=== PATIENT | female | born 1940 | race Caucasian/White ===

== ENCOUNTER 2019-11-20 04:00 | Outpatient (RCR) | payer MEDICARE, OTHER, SELFPAY | END 2019-11-27 00:01 | LOC: LAB 04:00 | PROVIDERS: Visit Provider Nurse Practitioner Family | DX: G30.9 Alzheimer's disease, unspecified (principal); I10 Essential (primary) hypertension | CPT/HCPCS: 36415; 80048; 85025 ==

== ENCOUNTER 2021-05-28 12:26 | Inpatient (IN) | payer MEDICARE, OTHER, SELFPAY ==
[2021-05-28] VITALS (10 sets, daily range): BP systolic 109–155; BP diastolic 63–90; PULSE 67–80; RESP 15–19; TEMP 36.8–37.6; O2SAT 90–94; BMI 29.5
--- NOTE | 2021-05-28 12:51 | XR_ITS ---
WS: [id number] Portable AP upright chest, 05/28/2021 Clinical Data: reduced breaths sounds Comparison: Portable chest, 11/15/2013. Findings: There is a patchy opacity in the lateral aspect of the right midlung and right lower lung w hich could represent atelectasis and/or minimal pneumonia. The patient has a poor inspiratory effort. No nodules, masses or effusions are seen. The heart is normal. The aortic arch and descending aorta show tortuosity. The pulmonary vascularity is not increased. No pneumothorax is seen. 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 XR/XR chest 1V portable [id number] Impression: 1. Patchy opacity in right midlung and right lower lobe which could represent a telectasis and/or pneumonia. 2. Atherosclerosis.
--- NOTE | 2021-05-28 12:54 | ECG_ITS ---
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 Measurements Intervals [place] Rate: 82 P: 60 VA: 202 QRS: 12 QRSD: 90 T: 29 QT: 385 QTc: 452 Interpretive Statements SINUS RHYTHM WITH OCCASIONAL SUPRAVENTRICULAR PREMATURE COMPLEXES No previous ECG available for comparison Electronically Signed On 05-28-2021 20:29:31 CDT by Elliot Yip M.D. [id number]
[2021-05-28] MEDS: sodium chloride 0.9% 1,000 ML 999 ML IV (13:13)
[2021-05-28 13:20] LABS: Basophils # 0.1 10^3/uL (0.0-0.1); Basophils % 0.4 %; Eosinophils % 0.3 %; Hematocrit 36.3 % (37.0-47.0); Hemoglobin 11.4 g/dL (11.5-15.3); Lymphocytes # 0.9 10^3/uL (0.8-4.8); Lymphocytes % 6.2 %; Mean Corpuscular HGB Conc 31.4 g/dL (30.0-36.0); Mean Corpuscular Hemoglobin 29.8 pg (28.0-34.0); Mean Platelet Volume 9.9 fL (7.4-10.4); Monocytes # 1.8 10^3/uL (0.2-0.9); Monocytes % 12.7 %; Neutrophils # 10.63 10^3/uL (1.8-7.7); Neutrophils % 76.2 %; Nucleated Red Blood Cells % 0 %; Platelet Count 335 10^3/cmm (130-400); Red Blood Count 3.82 10^6/uL (4.1-5.3); Red Cell Distribution Width 12.8 % (12.1-15.1); White Blood Count 13.9 10^3/uL (4.0-10.0)
[2021-05-28 13:27] LABS: Add Urine Microscopic? YES; Bilirubin Urine Neg (Negative); Blood Urine Neg (Negative); Glucose Urine UA Norm (Normal); Ketones Urine Negative (Negative); Leukocyte Esterase Urine Negative (Negative); Nitrate Urine Positive (Negative); Protein Urine Neg (Negative); Urine Appearance Clear (CLEAR); Urine Color Yellow (Yellow); Urobilinogen Urine Norm (Negative); pH Urine 5 (5-7)
[2021-05-28 13:28] LABS: Bacteria Urine 2+ /hpf; Squamous Epithelial Cell Urine 0-4 /hpf (0-5)
[2021-05-28 13:38] LABS: ABG PCO2 34.3 mmHg (35-45); ABG PH Result 7.43 (7.35-7.45); Arterial Blood Gas Hematocrit 35.8 % (37-47); Base Excess ABG -0.9 mmol/L (-2.0-2.0); Blood Gas Operator Identificat AMH; Blood Gas Sample Site Brachial, right; Blood Gas Sample Type Arterial; HCO3 ABG 22.9 mmol/L (22-26); HGB O2 Sat 90.5 % (95-100); Methemoglobin 0.9 % (0.4-1.5); Oxygen Device ROOM AIR; PO2 ABG 59.1 mmHg (80.0-100.0); Total Hemoglobin 11.7 g/dL (12-16)
[2021-05-28 13:38] LABS: Lactate (Lactic Acid level) 0.8 mmol/L (0.5-2.2); Troponin(5th) Baseline 28 ng/L (0-10)
[2021-05-28 13:42] LABS: Albumin Level 3.1 g/dL (3.5-5.2); Alkaline Phosphatase 141 IU/L (35-105); Anion Gap 14.9 (5-19); Calcium 8.2 mg/dL (8.5-10.5); Chloride 101 mmol/L (98-107); Globulin 3.2 g/dL (1.3-4.6); Osmolality Calculated 280 mOsm/kg (285-295); Potassium 3.9 mmol/L (3.5-5.1); Sodium 134 mmol/L (136-145); Total Protein 6.3 g/dL (6.6-8.7)
[2021-05-28 13:45] LABS: Alanine Aminotransferase 9 U/L (0-33); Aspartate Amino Transferase 12 U/L (0-32); Blood Urea Nitrogen 17 mg/dL (8-23); Carbon Dioxide 22 mmol/L (22-29); Glucose 106 mg/dL (65-115); Lipase 29 U/L (13-60); Total Bilirubin 0.5 mg/dL (0.15-1.2)
[2021-05-28 13:55] LABS: Add Urine Culture? Yes
--- NOTE | 2021-05-28 14:03 | CT_ITS ---
WS: [id number] CT ABDOMEN PELVIS TECHNIQUE: Contrast-enhanced CT of the abdomen and pelvis with coronal and sagittal reformatted image s. CLINICAL INFORMATION: llq abd tenderness COMPARISON: None. DLP: 1612.[address] scans at [facility] use at least one of these dose optimization techniques: automat ed exposure control; mA and/or kV adjustment per patient size (includes targeted exams where dose is matched to clinical indication); or iterative reconstruction. FINDINGS: Diffuse fatty infiltration of the liver. Normal portal vein and splenic vein. Small cyst in left hepa tic lobe measuring 11 mm. Gallbladder appears normal. Normal spleen. Moderate esophageal hiatal herni a. Small right pleural effusion with compressive atelectasis right lower lobe. Patchy infiltrates par tially visualized in the lingula right middle lobe and right lower lobe. Trace left pleural fluid. Adrenal glands are normal. Bilateral renal cortical atrophy. Normal renal p arenchymal enhancement. A few tiny renal cysts. Fatty atrophy of the pancreas. No hydronephrosis in e ither kidney. Normal caliber abdominal aorta. Aortic calcification. Rectal constipation with prominent rectal distention. Sigmoid diverticulosis. No evidence of acute di verticulitis. Sigmoid colon is decompressed. Moderate distention of the right and left colon and roque sverse colon with fecal retention and air-fluid levels. No free fluid in the pelvis. Small bowel is decompressed. Tiny fat-containing umbilical hernia. Vivien l caliber abdominal aorta. No abdominal or pelvic lymphadenopathy. Grade 1 anterolisthesis L4 on L5. Disc space narrowing worse at L1-L2, L2-3, L4 L5 and L5-S1. CT/CT abdomen pelvis w con* [id number] IMPRESSION: 1. Pancolonic constipation with air-fluid levels in the transverse colon. Mode rate colonic distention. 2. Rectal constipation with prominent rectal distention. 3. Sigmoid diverticulosis. No evidence of acute diverticulitis. 4. Small right pleural effusion with patchy infiltrates in the right middle lo be and right lower lobe. Trace infiltrates in the lingula. Recommend correlatio n for pneumonia. 5. No hydronephrosis in either kidney. 6. Normal caliber abdominal aorta. 7. Small esophageal hiatal hernia.
[2021-05-28] MEDS: cefTRIAXone 1,000 MG in sodium chloride 0.9% (plus) 50 ML 100 MG IV (14:29)
[2021-05-28] MEDS: iohexol 300 mg/mL 100 mL Btl IV (14:52)
--- NOTE | 2021-05-28 14:54 | ECG_ITS ---
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 Measurements Intervals [place] Rate: 77 P: 64 AK: 204 QRS: 9 QRSD: 85 T: 1 QT: 386 QTc: 438 Interpretive Statements SINUS RHYTHM Compared to ECG 05/28/2021 13:17:04 No significant changes Electronically Signed On 05-28-2021 20:37:44 CDT by Elliot Yip M.D. [id number]
[2021-05-28] MEDS: azithromycin 500 MG in sodium chloride 0.9% 250 ML 250 MG IV (14:57)
[2021-05-28 16:44] LABS: Troponin 5 2HR 24.29 ng/L (0-10)
[2021-05-28 16:45] LABS: Troponin 5 2HR Delta -3.71 ABS# (0-10)
--- NOTE | 2021-05-28 17:02 | ED_ITS ---
HPI - Abdominal Pain General: Chief Complaint: Abdominal Pain Stated Complaint: abd pain Time Seen by Provider: 05/28/21 12:36 History of Present Illness: HPI narrative: The patient is a 80-year-old female with past medical history dementia who lives at shelter comes to the ER complaining of lower abdominal pain. When asked she says yes she has abdominal pain then forgets about it. Then her belly cramps and she collapsed grabs her left lower quadrant. She is not a reliable historian at all. She knows her name but nothing else. Of note she is satting in the mid to upper 80s on room air and when asked to take deep breaths she goes to the low 90s. Placed on 2 L oxygen satting in the 90s MD elicited complaint: abdominal pain Pain Consistency: intermittent Location: LLQ Severity: moderate Quality: sharp Migration to: RLQ Exacerbating factors: other (palpation) Relieving factors: nothing Associated Symptoms: Reports no associated symptoms; Denies GI cramping and diarrhea Review of Systems General: Reports: 10 or more systems reviewed and unremarkable except in HPI and below Const: Denies: fatigue Eyes: Denies: change in vision, blurry vision or eye redness ENMT: Denies: throat pain, swelling of lips/tongue, ear or mastoid pain or nasal congestion Card: Denies: chest pain, palpitations, irregular heart rhythm, edema, dyspnea on exertion or orthopnea Resp: Denies: dyspnea, productive cough or non-productive cough GI: Reports: abdominal pain; Denies: diarrhea or GI cramping : Denies: flank pain, difficulty voiding, urinary frequency or urinary urgency Musc: Denies: neck pain, back pain, extremity pain, joint pain, joint redness, limited range of motion or muscle weakness Skin/Breast: Denies: rash, pruritus, erythema, skin pain or skin tenderness Neuro: Denies: headache(s), numbness in extremities, weakness in extremities, sensory changes, difficulty walking, dizziness, confusion or Slurred speech present Psych: Denies: anxiety or depression Endo: Denies: polyuria All/Imm: Denies: urticaria, throat swelling or tongue swelling PFSH ED PFSH: Medical History (Updated 05/29/21 @ 00:39 by Darrel Siddiqui MD) Alzheimer disease Physical Exam Const: COMMON NORMALS: no acute distress, average body habitus, patient oriented x3, no limitations, healthy appearing, alert and well nourished GENERAL APPEARANCE: cooperative, comfortable, well kempt and well developed ORIENTATION/CONSCIOUSNESS: Yes awake, Yes oriented to person, Yes oriented to place and Yes oriented to time HENMT: COMMON NORMALS: normocephalic, external ears normal and Normal external nose present HEAD & SCALP: normal to inspection and normocephalic NOSE: Normal external nose present EXTERNAL EAR: Yes external ears normal MOUTH: Normal oral and palatal mucosa present THROAT: posterior oropharynx normal Eye: COMMON NORMALS: Equal, round and reactive pupils present and EOMs intact bilaterally GENERAL EYE: appearance normal, both eyes and all related structures PUPIL: Yes Equal, round and reactive pupils present Neck/C-Spine: COMMON NORMALS: full ROM, no lymphadenopathy, no meningeal signs and no JVD GENERAL: Yes normal visual inspection Lymph: LYMPHATIC: no lymphadenopathy noted Chest: COMMONS NORMALS: normal inspection of the chest and normal palpation of entire chest wall Resp: COMMON NORMALS: normal respiratory effort, No retractions, No use of accessory muscles, clear to auscultation bilaterally and percussion normal EFFORT & INSPECTION: Yes able to speak in complete sentences AUSCULTATION: clear to auscultation bilaterally PERCUSSION: percussion normal Cardio: COMMON NORMALS: no JVD, regular rate, regular rhythm, S1 normal heart sound present, S2 normal heart sound present and Peripheral pulses 2+ throughout RATE: regular rate RHYTHM: regular rhythm HEART SOUNDS: S1 normal heart sound present and S2 normal heart sound present PERIPHERAL PULSES: Peripheral pulses 2+ throughout GI: COMMON NORMALS: Normal to inspection, nondistended, normoactive bowel sounds present, Soft to palpation and no masses INSPECTION: Yes normal to inspection PALPATION: Yes Soft to palpation and Yes Tenderness to palpation present (GI) Details: LLQ : COMMON NORMALS: Yes no CVA tenderness BLADDER/KIDNEY EXAM: Yes no CVA tenderness Back/Pelvis: COMMON NORMALS: no CVA tenderness, thoracic and lumbar spine normal to inspection, no thoracic nor lumbar tenderness and thoraco-lumbar ROM normal Extremity: COMMON NORMALS: normal to inspection, full ROM, capillary refill normal, no joint enlargement and no pedal edema GENERAL: Yes normal exam except as noted Neuro: COMMON NORMALS: patient oriented x3, CN's II-XII intact bilaterally, moves all extremities, no focal motor deficits, no sensory deficits noted and gait normal SENSORIUM/ORIENTATION: Yes alert, Yes oriented to person, Yes oriented to place and Yes oriented to time MENINGEAL SIGNS: Yes no meningeal signs Psych: COMMON NORMALS: mental status grossly normal, Normal thought process present, cooperative, normal affect and speech normal APPEARANCE: Yes well kempt ATTITUDE: Yes calm SPEECH: Yes normal speech THOUGHT PROCESS: Normal thought process present Skin: COMMON NORMALS: no rashes or lesions noted GENERAL SKIN EXAM: no rashes or lesions noted Course Vital Signs: Vital signs: Vital Signs Temperature 98.6 F 05/29/21 00:29 Pulse Rate 77 05/28/21 23:55 Respiratory Rate 17 05/28/21 23:55 Blood Pressure 153/86 05/28/21 23:55 Pulse Oximetry 94 05/28/21 23:55 MDM - Abdominal Pain MDM Narrative: Medical decision making narrative: The patient came to the ER complaining of lower abdominal pain and oxygen sat was in the mid 80s when she arrived as well. Placed on oxygen with good improvement of her oxygenation. Chest x-ray shows right middle and lower lobe pneumonia as well as white count 13.9. She was started on IV fluids, ceftriaxone, and azithromycin as well as given a breathing treatment. Her abdominal pain was evaluated with CT abdomen pelvis which was unremarkable other than showing constipation. She is chronically as well suffering from dementia severely and is an unreliable historian. Discussed with Dr. Olmstead who accepts for admission. Lab Data: Labs: Lab Results 05/28/21 05/28/21 05/28/21 Range/Units 13:00 13:09 13:09 WBC 13.9 H (4.0-10.0) 10^3/ uL RBC 3.82 L (4.1-5.3) 10^6/u L Hgb 11.4 L (11.5-15.3) g/dL Hct 36.3 L (37.0-47.0) % MCV 95.0 (81-99) fL MCH 29.8 (28.0-34.0) pg MCHC 31.4 (30.0-36.0) g/dL RDW 12.8 (12.1-15.1) % Plt Count 335 (130-400) 10^3/c mm MPV 9.9 (7.4-10.4) fL Neut % (Auto) 76.2 % Lymph % (Auto) 6.2 % Bledsoe % (Auto) 12.7 % Eos % (Auto) 0.3 % Baso % (Auto) 0.4 % Neut # (Auto) 10.63 H (1.8-7.7) 10^3/u L Lymph # (Auto) 0.9 (0.8-4.8) 10^3/u L Bledsoe # (Auto) 1.8 H (0.2-0.9) 10^3/u L Eos # (Auto) 0.0 (0.0-0.8) 10^3/u L Baso # (Auto) 0.1 (0.0-0.1) 10^3/u L Nucleated RBC % (a uto) 0 % Nucleated RBCs # 0.0 /100WBC Specimen Type Sample Site ABG pH (7.35-7.45) ABG pCO2 (35-45) mmHg ABG pO2 (80.0-100.0) mmH g ABG HCO3 (22-26) mmol/L ABG Base Excess (-2.0-2.0) mmol/ L Alex Test Hematocrit (37-47) % Hgb O2 Saturation (95-100) % Carboxyhemoglobin (0.4-20.1) %THgb Methemoglobin (0.4-1.5) % Total Hemoglobin (12-16) g/dL O2 Delivery Device FiO2 % [employer] Operator ID Sodium 134 L (136-145) mmol/L Potassium 3.9 (3.5-5.1) mmol/L Chloride 101 (98-107) mmol/L Carbon Dioxide 22 (22-29) mmol/L Anion Gap 14.9 (5-19) BUN 17 (8-23) mg/dL Creatinine 0.9 (0.5-0.9) mg/dL GFR Calculation Not Reportable Glucose 106 (65-115) mg/dL Calculated Osmolal ity 280 L (285-295) mOsm/k g Lactate (0.5-2.2) mmol/L Calcium 8.2 L (8.5-10.5) mg/dL Total Bilirubin 0.5 (0.15-1.2) mg/dL AST 12 (0-32) U/L ALT 9 (0-33) U/L Alkaline Phosphata se 141 H (35-105) IU/L Troponin T Baselin e (0-10) ng/L Troponin T 120 [place] (0-10) ng/L Delta Troponin T (0-10) ABS# Total Protein 6.3 L (6.6-8.7) g/dL Albumin 3.1 L (3.5-5.2) g/dL Globulin 3.2 (1.3-4.6) g/dL Lipase 29 (13-60) U/L Urine Color Yellow (Yellow) Urine Appearance Clear (CLEAR) Urine pH 5 (5-7) Ur Specific Gravit y 1.020 (1.005-1.030) Urine Protein Neg (Negative) Urine Glucose (UA) Norm (Normal) Urine Ketones Negative (Negative) Urine Blood Neg (Negative) Urine Nitrate Positive H (Negative) Urine Bilirubin Neg (Negative) Urine Urobilinogen Norm (Negative) mg/dL Ur Leukocyte Staci ase Negative (Negative) Urine RBC None (0-2) /hpf Urine WBC None (0-5) /hpf Ur Squamous Epith Cells 0-4 H (0-5) /hpf Amorphous Sediment Not Reportable Urine Bacteria 2+ H (NONE) /hpf 05/28/21 05/28/21 05/28/21 Range/Units 13:09 13:09 13:27 WBC (4.0-10.0) 10^3/ uL RBC (4.1-5.3) 10^6/u L Hgb (11.5-15.3) g/dL Hct (37.0-47.0) % MCV (81-99) fL MCH (28.0-34.0) pg MCHC (30.0-36.0) g/dL RDW (12.1-15.1) % Plt Count (130-400) 10^3/c mm MPV (7.4-10.4) fL Neut % (Auto) % Lymph % (Auto) % Bledsoe % (Auto) % Eos % (Auto) % Baso % (Auto) % Neut # (Auto) (1.8-7.7) 10^3/u L Lymph # (Auto) (0.8-4.8) 10^3/u L Bledsoe # (Auto) (0.2-0.9) 10^3/u L Eos # (Auto) (0.0-0.8) 10^3/u L Baso # (Auto) (0.0-0.1) 10^3/u L Nucleated RBC % (a uto) % Nucleated RBCs # /100WBC Specimen Type Arterial Sample Site Brachial, right ABG pH 7.43 (7.35-7.45) ABG pCO2 34.3 L (35-45) mmHg ABG pO2 59.1 L (80.0-100.0) mmH g ABG HCO3 22.9 (22-26) mmol/L ABG Base Excess -0.9 (-2.0-2.0) mmol/ L Alex Test N/a Hematocrit 35.8 L (37-47) % Hgb O2 Saturation 90.5 L (95-100) % Carboxyhemoglobin 1.0 (0.4-20.1) %THgb Methemoglobin 0.9 (0.4-1.5) % Total Hemoglobin 11.7 L (12-16) g/dL O2 Delivery Device Room air FiO2 21.0 % [employer] Operator ID Amh Sodium (136-145) mmol/L Potassium (3.5-5.1) mmol/L Chloride (98-107) mmol/L Carbon Dioxide (22-29) mmol/L Anion Gap (5-19) BUN (8-23) mg/dL Creatinine (0.5-0.9) mg/dL GFR Calculation Glucose (65-115) mg/dL Calculated Osmolal ity (285-295) mOsm/k g Lactate 0.8 (0.5-2.2) mmol/L Calcium (8.5-10.5) mg/dL Total Bilirubin (0.15-1.2) mg/dL AST (0-32) U/L ALT (0-33) U/L Alkaline Phosphata se (35-105) IU/L Troponin T Baselin e 28 H (0-10) ng/L Troponin T 120 [place] (0-10) ng/L Delta Troponin T (0-10) ABS# Total Protein (6.6-8.7) g/dL Albumin (3.5-5.2) g/dL Globulin (1.3-4.6) g/dL Lipase (13-60) U/L Urine Color (Yellow) Urine Appearance (CLEAR) Urine pH (5-7) Ur Specific Gravit y (1.005-1.030) Urine Protein (Negative) Urine Glucose (UA) (Normal) Urine Ketones (Negative) Urine Blood (Negative) Urine Nitrate (Negative) Urine Bilirubin (Negative) Urine Urobilinogen (Negative) mg/dL Ur Leukocyte Staci ase (Negative) Urine RBC (0-2) /hpf Urine WBC (0-5) /hpf Ur Squamous Epith Cells (0-5) /hpf Amorphous Sediment Urine Bacteria (NONE) /hpf 05/28/21 Range/Units 15:30 WBC (4.0-10.0) 10^3/ uL RBC (4.1-5.3) 10^6/u L Hgb (11.5-15.3) g/dL Hct (37.0-47.0) % MCV (81-99) fL MCH (28.0-34.0) pg MCHC (30.0-36.0) g/dL RDW (12.1-15.1) % Plt Count (130-400) 10^3/c mm MPV (7.4-10.4) fL Neut % (Auto) % Lymph % (Auto) % Bledso[place] % (Auto) % Eos % (Auto) % Baso % (Auto) % Neut # (Auto) (1.8-7.7) 10^3/u L Lymph # (Auto) (0.8-4.8) 10^3/u L [place]led[place] # (Auto) (0.2-0.9) 10^3/u L Eos # (Auto) (0.0-0.8) 10^3/u L Baso # (Auto) (0.0-0.1) 10^3/u L Nucleated RBC % (a uto) % Nucleated RBCs # /100WBC Specimen Type Sample Site ABG pH (7.35-7.45) ABG pCO2 (35-45) mmHg ABG pO2 (80.0-100.0) mmH g ABG HCO3 (22-26) mmol/L ABG Base Excess (-2.0-2.0) mmol/ L Alex Test Hematocrit (37-47) % Hgb O2 Saturation (95-100) % Carboxyhemoglobin (0.4-20.1) %THgb Methemoglobin (0.4-1.5) % Total Hemoglobin (12-16) g/dL O2 Delivery Device FiO2 % [employer] Operator ID Sodium (136-145) mmol/L Potassium (3.5-5.1) mmol/L Chloride (98-107) mmol/L Carbon Dioxide (22-29) mmol/L Anion Gap (5-19) BUN (8-23) mg/dL Creatinine (0.5-0.9) mg/dL GFR Calculation Glucose (65-115) mg/dL Calculated Osmolal ity (285-295) mOsm/k g Lactate (0.5-2.2) mmol/L Calcium (8.5-10.5) mg/dL Total Bilirubin (0.15-1.2) mg/dL AST (0-32) U/L ALT (0-33) U/L Alkaline Phosphata se (35-105) IU/L Troponin T Baselin e (0-10) ng/L Troponin T 120 [place] 24.29 H (0-10) ng/L Delta Troponin T -3.71 L (0-10) ABS# Total Protein (6.6-8.7) g/dL Albumin (3.5-5.2) g/dL Globulin (1.3-4.6) g/dL Lipase (13-60) U/L Urine Color (Yellow) Urine Appearance (CLEAR) Urine pH (5-7) Ur Specific Gravit y (1.005-1.030) Urine Protein (Negative) Urine Glucose (UA) (Normal) Urine Ketones (Negative) Urine Blood (Negative) Urine Nitrate (Negative) Urine Bilirubin (Negative) Urine Urobilinogen (Negative) mg/dL Ur Leukocyte Staci ase (Negative) Urine RBC (0-2) /hpf Urine WBC (0-5) /hpf Ur Squamous Epith Cells (0-5) /hpf Amorphous Sediment Urine Bacteria (NONE) /hpf Discharge Plan Discharge Patient Disposition: Admitted As Inpatient Admit Provider: Kait Olmstead Clinical Impression: Community acquired pneumonia, Constipation, UTI (urinary tract infection), Alzheimer disease Condition: Stable Coding Level of Care Code ED Academic Services Coordinator for Chg Fwd Exam Comprehensive
--- NOTE | 2021-05-28 20:08 | P.HP_ITS ---
Providers/Chief Complaint Admitting Physician: Kait Olmstead MD Chief Complaint: abdominal pain/ confusion History of Present Illness Ignacia Couch is a 80 year old female with Alzheimer's dementia, long-term senior living resident, referred to the ER after she was noted to have lower abdominal pain oxygen saturation down in the 80s. She was tested for Covid PCR, and was negative on May 25, 2021. Patient noted to have increased confusion over baseline. She is unable to give me any history due to profound dementia. History is obtained by ER chart review. Diagnostics notable for positive UA, leukocytosis with WBC up to 13, hypoxia on ABG, pancolonic constipation on CT abdomen with moderate colonic distension, no diverticulitis, small right pleural effusion with patchy infiltrates in RML and RLL. CXR with Patchy opacity in right midlung and right lower lobe which could represent atelectasis and/or pneumonia. Review of Systems General: Reports: ROS unobtainable due to medical condition Medications/Allergies Home Medications Medication Instructions Recorded Confirmed Last Taken Type acetaminophen [Mapap Arthritis 650 mg PO Q6H PRN 05/28/21 05/28/21 Unknown History Pain] albuterol sulfate 2.5 mg INHALATION Q4H PRN 05/28/21 05/28/21 05/27/21 History bisacodyl 5 mg PO DAILY PRN MDD 2 TIMES 05/28/21 05/28/21 05/27/21 History dextran 70-hypromellose (PF) 1 drp OPHTHALMIC (EYE) PRN 05/28/21 05/28/21 Unknown History [Natural Tears (PF)] donepezil 10 mg PO DAILY@199905/28/21 05/28/21 05/27/21 History food supplemt, lactose-reduced 1 ea PO BID@0800,199905/28/21 05/28/21 05/28/21 History [TwoCal HN] lisinopril 20 mg PO DAILY@0800 05/28/21 05/28/21 05/28/21 History loratadine 10 mg PO DAILY@0800 05/28/21 05/28/21 05/28/21 History memantine 10 mg PO BID@0800,199905/28/21 05/28/21 05/28/21 History simvastatin 10 mg PO DAILY@1700 07/12/1805/28/21 05/27/21 History tramadol 50 mg PO Q8H PRN 05/28/21 05/28/21 Unknown History tramadol 50 mg PO TID@08,14,20 05/28/21 05/28/21 05/28/21 History Allergies Allergy/AdvReac Type Severity Reaction Status Date / Time Barbiturates Allergy Unknown Verified 05/28/21 13:47 PFSH Acute PFSH: Medical History (Updated 05/28/21 @ 20:12 by Kait Olmstead MD) Alzheimer disease Vitals/I&O/Wt Last Vital Signs Temp 98.6 F 05/28/21 19:59 Pulse 67 05/28/21 19:59 Resp 18 05/28/21 19:59 BP 150/90 05/28/21 19:59 Pulse Ox 90 05/28/21 19:59 05/28/21 05/28/21 05/28/21 06:59 14:59 22:59 Intake Total 1300 / 1300 Balance 1300 / 1300 Weight last 48 hrs Weight 83.007 kg Physical Exam Narrative: EXAM NARRATIVE: General: No acute distress, AO x1 HEENT: PERRLA, pupils bilaterally equal and reactive, pallors not present Chest: Normal vesicular breath sounds, no added sounds, equal good air entry bilaterally CVS: S1-S2 regular, no murmurs, no tachycardia, no gallops, no rubs Abdomen: Soft, nontender, no organomegaly, bowel sounds present Neuro: No focal deficits, no facial deformity, AO x3, power 5/5 in all limbs Extremities: no cyanosis, clubbing or edema Data : 05/28/21 13:09 05/28/21 13:09 A&P Assessment and plan (1) Community acquired pneumonia: start Ceftriaxone 1g iv q24h + azithromycin 500mg supplemental 02 to keep sat >92% albuterol inhalation prn COVID PCR negative at facility from 05/25 Status: Acute (2) UTI (urinary tract infection): +UA, urine cx pending CTX empirically as above cr normal no obstruction Status: Acute (3) Constipation: with colonic distension Dulcolax suppository now, start lactulose , MOM prn Status: Acute (4) Alzheimer disease: worsened mentation than at baseline per daughter, patient usually alert , awake, converses appropriately but with poor short term memory, forgetful. recently advanced from assisted living to closed dementia unit likely worsening related to metabolic encephalopathy fro UTI, pneumonia Status: Acute Attestations Medical Necessity Statement*: >2midnight anticipated, need for iv abx for pneumonia, UTI, metabolic encephalopathy Coding Level of Care Code Acute Transaction Advisory Services Manager for [facility] Fwd Diagnoses Community acquired pneumonia J18.9 UTI (urinary tract infection) N39.0 Constipation K59.00 Alzheimer disease G30.9; F02.80
[2021-05-28] MEDS: lactulose oral liq 20 gm/30 mL UDC 10 GM PO (22:04)
[2021-05-28] MEDS: bisacodyl 10 mg Supp PR (22:05)
[2021-05-28] MEDS: enoxaparin 40 mg/0.4 mL Syringe SUBCUT (22:06)
[2021-05-28] MEDS: sodium chloride 0.9% 1,000 ML 50 ML IV (22:06)
[2021-05-29] VITALS (8 sets, daily range): BP systolic 135–163; BP diastolic 54–88; PULSE 62–94; RESP 16–18; TEMP 36.9–38.1; O2SAT 90–98
[2021-05-29 04:53] LABS: Basophils # 0.1 10^3/uL (0.0-0.1); Basophils % 0.6 %; Eosinophils # 0.2 10^3/uL (0.0-0.8); Eosinophils % 1.2 %; Hematocrit 37.7 % (37.0-47.0); Hemoglobin 11.8 g/dL (11.5-15.3); Lymphocytes # 1.4 10^3/uL (0.8-4.8); Lymphocytes % 10.9 %; Mean Corpuscular HGB Conc 31.3 g/dL (30.0-36.0); Mean Corpuscular Hemoglobin 29.4 pg (28.0-34.0); Mean Platelet Volume 9.9 fL (7.4-10.4); Monocytes # 1.8 10^3/uL (0.2-0.9); Monocytes % 13.9 %; Neutrophils # 8.68 10^3/uL (1.8-7.7); Neutrophils % 68.4 %; Nucleated Red Blood Cells % 0 %; Platelet Count 340 10^3/cmm (130-400); Red Blood Count 4.01 10^6/uL (4.1-5.3); Red Cell Distribution Width 12.4 % (12.1-15.1); White Blood Count 12.7 10^3/uL (4.0-10.0)
[2021-05-29 05:15] LABS: Aspartate Amino Transferase 13 U/L (0-32); Total Bilirubin 0.4 mg/dL (0.15-1.2)
[2021-05-29 05:42] LABS: Albumin Level 2.9 g/dL (3.5-5.2); Alkaline Phosphatase 125 IU/L (35-105); Blood Urea Nitrogen 12 mg/dL (8-23); Calcium 8.1 mg/dL (8.5-10.5); Osmolality Calculated 284 mOsm/kg (285-295)
[2021-05-29 05:43] LABS: Alanine Aminotransferase 8 U/L (0-33); Anion Gap 16.9 (5-19); Carbon Dioxide 21 mmol/L (22-29); Chloride 104 mmol/L (98-107); Globulin 3.1 g/dL (1.3-4.6); Glucose 75 mg/dL (65-115); Potassium 3.9 mmol/L (3.5-5.1); Sodium 138 mmol/L (136-145)
--- NOTE | 2021-05-29 05:45 | PC.NURSE ---
SHIFT NOTE PATIENT RESTED IN BED THIS SHIFT, EASILY AWAKEN, SMALL FORMED STOOL AFTER LAX WAS GIVEN, HAD LOOSE SHARMILA STOOL AROUND 0400, INCONTINENT OF B&B, REMAINED CONFUSED THROUGHOUT THE NIGHT, COOPERATIVE AND ABLE TO FOLLOW SIMPLE INSTRUCTIONS, PATIENTS BEGINS COUGHING WITH MOVEMENT AND DEEP BREATHS, COUGH REMAINED DRY.
[2021-05-29] MEDS: lisinopril 20 mg Tablet PO (09:19)
[2021-05-29] MEDS: memantine 5 mg tablet 10 MG PO ×2 (09:19→20:30)
[2021-05-29] MEDS: lactulose oral liq 20 gm/30 mL UDC 10 GM PO ×2 (09:19→20:31)
[2021-05-29] MEDS: TRAMadol 50 mg Tablet PO ×2 (09:20→20:30)
--- NOTE | 2021-05-29 11:05 | PC.NURSE ---
per Dr. morton pt had a negative COVID PCR on 05/25 at [facility], verbal order to discontinue isolation.
[2021-05-29 15:20] LABS: Coronavirus Test Green County Not Detected
--- NOTE | 2021-05-29 18:04 | PM.PN ---
Subjective Subjective: Interval history: mental status significantly better today, alert awake and oriented though lapses iwth short term memeory evident, reports 1BM yesterday Vitals/I&O/Wt Last Vital Signs Temp 98.8 F 05/29/21 11:33 Pulse 67 05/29/21 11:33 Resp 16 05/29/21 11:33 BP 135/78 05/29/21 11:33 Pulse Ox 90 05/29/21 11:33 Weight last 48 hrs Weight 83.007 kg Physical Exam Narrative: EXAM NARRATIVE: GEN: Awake, alert and oriented, no acute distress CVS: S1S2 N RS: CTA B/L Abd: Soft, nt/nd , bs+ PHARMACIST IN CHARGE: no focal neuro deficits Data : 05/29/21 04:37 05/29/21 04:37 Micro: Microbiology 05/28/21 13:00 Sputum Culture - Preliminary Sputum - Expectorated Sputum 05/28/21 13:00 Urine Culture - Preliminary Urine,Clean Catch Gram Negative Rods A&P Assessment and plan (1) Community acquired pneumonia: continue Ceftriaxone 1g iv q24h + azithromycin 500mg supplemental 02 to keep sat >92% albuterol inhalation prn COVID PCR negative at facility from 05/25 Status: Acute (2) UTI (urinary tract infection): +UA, urine cx prelim GNR CTX empirically as above cr normal no obstruction Status: Acute (3) Constipation: with colonic distension Dulcolax suppository now, start lactulose , MOM prn Status: Acute (4) Alzheimer disease: worsened mentation than at baseline, improving today with abx and hydration per daughter, patient usually alert , awake, converses appropriately but with poor short term memory, forgetful. recently advanced from assisted living to closed dementia unit likely worsening related to metabolic encephalopathy fro UTI, pneumonia Status: Acute Attestations Medical Necessity Statement*: iv abx for pneumonia , UTI, awaiting cx results Coding Level of Care Code Acute It Solutions Architect for [facility] Fwd Diagnoses Community acquired pneumonia J18.9 UTI (urinary tract infection) N39.0 Constipation K59.00 Alzheimer disease G30.9; F02.80
[2021-05-29] MEDS: sodium chloride 0.9% 1,000 ML 50 ML IV (18:33)
[2021-05-29] MEDS: atorvastatin 40 mg Tablet 20 MG PO (18:34)
[2021-05-29] MEDS: cefTRIAXone 1,000 MG in sodium chloride 0.9% (plus) 50 ML 100 MG IV (18:38)
[2021-05-29] MEDS: donepezil 5 MG Tablet 10 MG PO (20:30)
[2021-05-29] MEDS: enoxaparin 40 mg/0.4 mL Syringe SUBCUT (20:31)
[2021-05-30] VITALS (8 sets, daily range): BP systolic 151–167; BP diastolic 80–92; PULSE 61–85; RESP 16–18; TEMP 36.4–37.6; O2SAT 91–94
[2021-05-30 06:50] LABS: Basophils # 0.1 10^3/uL (0.0-0.1); Basophils % 0.5 %; Eosinophils # 0.1 10^3/uL (0.0-0.8); Eosinophils % 1.1 %; Hematocrit 35.1 % (37.0-47.0); Hemoglobin 11.1 g/dL (11.5-15.3); Lymphocytes # 1.3 10^3/uL (0.8-4.8); Lymphocytes % 11.4 %; Mean Corpuscular HGB Conc 31.6 g/dL (30.0-36.0); Mean Corpuscular Hemoglobin 29.5 pg (28.0-34.0); Mean Corpuscular Volume 93.4 fL (81-99); Mean Platelet Volume 10.3 fL (7.4-10.4); Monocytes # 1.5 10^3/uL (0.2-0.9); Monocytes % 13.4 %; Neutrophils % 68.8 %; Nucleated Red Blood Cells % 0 %; Platelet Count 354 10^3/cmm (130-400); Red Blood Count 3.76 10^6/uL (4.1-5.3); Red Cell Distribution Width 12.4 % (12.1-15.1); White Blood Count 11.3 10^3/uL (4.0-10.0)
[2021-05-30 07:12] LABS: Alanine Aminotransferase 8 U/L (0-33); Albumin Level 2.9 g/dL (3.5-5.2); Alkaline Phosphatase 124 IU/L (35-105); Anion Gap 13.6 (5-19); Aspartate Amino Transferase 13 U/L (0-32); Blood Urea Nitrogen 12 mg/dL (8-23); Carbon Dioxide 24 mmol/L (22-29); Chloride 102 mmol/L (98-107); Glucose 81 mg/dL (65-115); Osmolality Calculated 281 mOsm/kg (285-295); Potassium 3.6 mmol/L (3.5-5.1); Sodium 136 mmol/L (136-145); Total Bilirubin 0.3 mg/dL (0.15-1.2); Total Protein 5.9 g/dL (6.6-8.7)
[2021-05-30] MEDS: lactulose oral liq 20 gm/30 mL UDC 10 GM PO ×2 (11:23→20:31)
[2021-05-30] MEDS: memantine 5 mg tablet 10 MG PO ×2 (11:23→20:31)
[2021-05-30] MEDS: azithromycin 250 mg Tablet 500 MG PO (11:24)
[2021-05-30] MEDS: TRAMadol 50 mg Tablet PO ×2 (11:27→19:01)
[2021-05-30] MEDS: lisinopril 20 mg Tablet PO (11:28)
[2021-05-30] MEDS: sodium chloride 0.9% 1,000 ML 50 ML IV (18:27)
[2021-05-30] MEDS: atorvastatin 40 mg Tablet 20 MG PO (18:28)
[2021-05-30] MEDS: cefTRIAXone 1,000 MG in sodium chloride 0.9% (plus) 50 ML 100 MG IV (18:30)
--- NOTE | 2021-05-30 18:33 | PM.PN ---
Subjective Subjective: Interval history: No new complaints today. Mental status remains at baseline. T-max 1.6 overnight. Leukocytosis trending down to 11.3. Sputum culture with Haemophilus influenza, urine culture with E. coli, susceptible to ceftriaxone. Vitals/I&O/Wt Last Vital Signs Temp 99.2 F 05/30/21 15:41 Pulse 65 05/30/21 15:41 Resp 16 05/30/21 15:41 BP 163/92 05/30/21 15:41 Pulse Ox 92 05/30/21 15:41 05/30/21 05/30/21 05/30/21 06:59 14:59 22:59 Intake Total 1158 / 1158 Balance 1158 / 1158 Physical Exam Narrative: EXAM NARRATIVE: GEN: Awake, alert and oriented, no acute distress CVS: S1S2 N RS: CTA B/L Abd: Soft, nt/nd , bs+ HOOKER OFF: no focal neuro deficits Data : 05/30/21 05:49 05/30/21 05:49 Micro: Microbiology 05/28/21 13:00 Sputum Culture - Final Sputum - Expectorated Sputum Haemophilus influenzae 05/28/21 13:00 Urine Culture - Final Urine,Clean Catch Escherichia coli 05/30/21 05:49 Blood Culture - Preliminary Blood SPECIMEN COLLECTED 05/30/21 05:42 Blood Culture - Preliminary Blood SPECIMEN COLLECTED A&P Assessment and plan (1) Community acquired pneumonia: continue Ceftriaxone 1g iv q24h + azithromycin 500mg supplemental 02 to keep sat >92% albuterol inhalation prn COVID PCR negative at facility from 05/25 Status: Acute Qualifiers: Laterality: unspecified laterality Qualified Code(s): J18.9 - Pneumonia, unspecified organism (2) UTI (urinary tract infection): +UA, urine cx prelim GNR CTX empirically as above cr normal no obstruction Status: Acute Qualifiers: Urinary tract infection type: acute cystitis Hematuria presence: without hematuria Qualified Code(s): N30.00 - Acute cystitis without hematuria (3) Constipation: with colonic distension Dulcolax suppository now, start lactulose , MOM prn Status: Acute Qualifiers: Constipation type: unspecified constipation type Qualified Code(s): K59.00 - Constipation, unspecified (4) Alzheimer disease: worsened mentation than at baseline, improving today with abx and hydration per daughter, patient usually alert , awake, converses appropriately but with poor short term memory, forgetful. recently advanced from assisted living to closed dementia unit likely worsening related to metabolic encephalopathy fro UTI, pneumonia Status: Acute Additional A&P Information Uncontrolled hypertension today, added amlodipine 5 mg Attestations Medical Necessity Statement*: Patient improving both from pneumonia and UTI perspective. Will await her to be afebrile at least 24 hours prior to discharge. Coding Level of Care Code Acute Computer Repair Instructor for g Fwd Diagnoses Community acquired pneumonia J18.9 Laterality: unspecified laterality UTI (urinary tract infection) N30.00 Urinary tract infection type: acute cystitis Hematuria presence: without hematuria Constipation K59.00 Constipation type: unspecified constipation type Alzheimer disease G30.9; F02.80
[2021-05-30] MEDS: amlodipine 5 mg Tablet PO (18:34)
[2021-05-30] MEDS: enoxaparin 40 mg/0.4 mL Syringe SUBCUT (20:31)
[2021-05-30] MEDS: donepezil 5 MG Tablet 10 MG PO (20:31)
[2021-05-31] VITALS: BP 172/77; PULSE 106; RESP 17; TEMP 36.6; O2SAT 97
[2021-05-31 03:30] VITALS: BP 167/90; PULSE 88; RESP 20; TEMP 37.4; O2SAT 95
[2021-05-31 05:26] LABS: Basophils # 0.1 10^3/uL (0.0-0.1); Basophils % 0.4 %; Eosinophils # 0.1 10^3/uL (0.0-0.8); Eosinophils % 0.6 %; Hematocrit 37.3 % (37.0-47.0); Hemoglobin 11.7 g/dL (11.5-15.3); Lymphocytes % 8.3 %; Mean Corpuscular HGB Conc 31.4 g/dL (30.0-36.0); Mean Corpuscular Hemoglobin 29.3 pg (28.0-34.0); Mean Corpuscular Volume 93.5 fL (81-99); Mean Platelet Volume 10.2 fL (7.4-10.4); Monocytes # 1.6 10^3/uL (0.2-0.9); Monocytes % 13.9 %; Neutrophils # 8.34 10^3/uL (1.8-7.7); Neutrophils % 72.8 %; Nucleated Red Blood Cells % 0 %; Platelet Count 394 10^3/cmm (130-400); Red Blood Count 3.99 10^6/uL (4.1-5.3); Red Cell Distribution Width 12.5 % (12.1-15.1); White Blood Count 11.5 10^3/uL (4.0-10.0)
[2021-05-31 05:54] LABS: Alanine Aminotransferase 8 U/L (0-33); Albumin Level 2.9 g/dL (3.5-5.2); Alkaline Phosphatase 136 IU/L (35-105); Aspartate Amino Transferase 12 U/L (0-32); Blood Urea Nitrogen 7 mg/dL (8-23); Calcium 8.2 mg/dL (8.5-10.5); Carbon Dioxide 23 mmol/L (22-29); Chloride 104 mmol/L (98-107); Globulin 3.3 g/dL (1.3-4.6); Glucose 119 mg/dL (65-115); Osmolality Calculated 285 mOsm/kg (285-295); Sodium 138 mmol/L (136-145); Total Bilirubin 0.3 mg/dL (0.15-1.2); Total Protein 6.2 g/dL (6.6-8.7)
[2021-05-31 07:34] VITALS: BP 137/82; PULSE 77; RESP 17; TEMP 37.2; O2SAT 91
--- NOTE | 2021-05-31 09:59 | PC.SOCIAL ---
IMM UPDATE IMM updated with patient. Left copy at bedside. Verbalized understanding. Initialed, dated, timed and placed in chart.
[2021-05-31 11:38] VITALS: BP 128/79; PULSE 72; RESP 17; TEMP 36.8; O2SAT 91
[2021-05-31] MEDS: azithromycin 250 mg Tablet 500 MG PO (13:02)
[2021-05-31] MEDS: lisinopril 20 mg Tablet PO (13:03)
[2021-05-31] MEDS: memantine 5 mg tablet 10 MG PO ×2 (13:03→21:31)
[2021-05-31] MEDS: amlodipine 5 mg Tablet PO (13:04)
[2021-05-31] MEDS: lactulose oral liq 20 gm/30 mL UDC 10 GM PO ×2 (13:06→21:33)
[2021-05-31] MEDS: sodium chloride 0.9% 1,000 ML 50 ML IV (14:04)
[2021-05-31] MEDS: TRAMadol 50 mg Tablet PO ×2 (14:59→21:33)
[2021-05-31 16:00] VITALS: BP 145/78; PULSE 73; RESP 17; TEMP 36.9; O2SAT 92
--- NOTE | 2021-05-31 17:05 | P.PN_ITS ---
Subjective Subjective: Interval history: No acute interim events, no new complaints. Afebrile now over the last 24 hours. Saturating well on room air. Had 2 bowel movements today, semisoft. Vitals/I&O/Wt Last Vital Signs Temp 98.2 F 05/31/21 11:38 Pulse 72 05/31/21 11:38 Resp 17 05/31/21 11:38 BP 128/79 05/31/21 11:38 Pulse Ox 91 05/31/21 11:38 05/31/21 05/31/21 05/31/21 06:59 14:59 22:59 Intake Total 980.833 / 980.833 Balance 980.833 / 980.833 Physical Exam Narrative: EXAM NARRATIVE: GEN: Awake, alert and oriented, no acute distress CVS: S1S2 N RS: CTA B/L Abd: Soft, nt/nd , bs+ CEPHALOMETRIC ANALYST: no focal neuro deficits Data : 05/31/21 04:55 05/31/21 04:55 Micro: Microbiology 05/30/21 05:49 Blood Culture - Preliminary Blood NEGATIVE TO DATE 05/30/21 05:42 Blood Culture - Preliminary Blood NEGATIVE TO DATE A&P Assessment and plan (1) Community acquired pneumonia: continue Ceftriaxone 1g iv q24h + azithromycin 500mg supplemental 02 to keep sat >92% albuterol inhalation prn COVID PCR negative at facility from 05/25 Status: Acute Qualifiers: Laterality: unspecified laterality Qualified Code(s): J18.9 - Pneumonia, unspecified organism (2) UTI (urinary tract infection): +UA, urine cx with E.coli , susceptible to ceftriaxone cr normal no obstruction Status: Acute Qualifiers: Hematuria presence: without hematuria Urinary tract infection type: acute cystitis Qualified Code(s): N30.00 - Acute cystitis without hematuria (3) Constipation: with colonic distension Now having bowel movements, to this morning. No gross abdominal distention or signs of peritonitis. Status: Acute Qualifiers: Constipation type: unspecified constipation type Qualified Code(s): K59.00 - Constipation, unspecified (4) Alzheimer disease: worsened mentation than at baseline, likely secondary to metabolic encephalopathy from infection on top of chronic dementia. Mental status is now back at baseline. Improved with antibiotics and hydration. Discontinue IV fluids today. Status: Acute Additional A&P Information Hypertension blood pressure is now better controlled with addition of amlodipine. Dispo discharge back to care home, patient stable today for discharge, however we were informed that the care home pharmacy is not open today due to May 31 weekend. She would be unable to get IV or oral antibiotics of discharge today therefore patient remains inpatient to continue her IV ceftriaxone. Attestations Medical Necessity Statement*: Ongoing need for antibiotics for both UTI and pneumonia. Coding Level of Care Code Acute Video Production Assistant for [facility] Fwd Diagnoses Community acquired pneumonia J18.9 Laterality: unspecified laterality UTI (urinary tract infection) N30.00 Hematuria presence: without hematuria Urinary tract infection type: acute cystitis Constipation K59.00 Constipation type: unspecified constipation type Alzheimer disease G30.9; F02.80
[2021-05-31] MEDS: atorvastatin 40 mg Tablet 20 MG PO (18:08)
[2021-05-31] MEDS: cefTRIAXone 1,000 MG in sodium chloride 0.9% (plus) 50 ML 100 MG IV (18:11)
[2021-05-31 20:00] VITALS: BP 142/83; PULSE 82; RESP 17; TEMP 36.9; O2SAT 91
[2021-05-31] MEDS: donepezil 5 MG Tablet 10 MG PO (21:32)
[2021-05-31] MEDS: enoxaparin 40 mg/0.4 mL Syringe SUBCUT (21:33)
[2021-06-01] VITALS (8 sets, daily range): BP systolic 128–139; BP diastolic 66–85; PULSE 74–96; RESP 16–18; TEMP 36.3–37.7; O2SAT 90–98
[2021-06-01 06:01] LABS: Basophils % 0.2 %; Hematocrit 34.1 % (37.0-47.0); Hemoglobin 10.9 g/dL (11.5-15.3); Lymphocytes # 0.9 10^3/uL (0.8-4.8); Mean Corpuscular Hemoglobin 29.9 pg (28.0-34.0); Mean Corpuscular Volume 93.4 fL (81-99); Monocytes # 3.5 10^3/uL (0.2-0.9); Monocytes % 20.2 %; Neutrophils # 12.47 10^3/uL (1.8-7.7); Neutrophils % 71.6 %; Nucleated Red Blood Cells % 0 %; Platelet Count 372 10^3/cmm (130-400); Red Blood Count 3.65 10^6/uL (4.1-5.3); Red Cell Distribution Width 12.7 % (12.1-15.1); White Blood Count 17.4 10^3/uL (4.0-10.0)
[2021-06-01 06:13] LABS: Alanine Aminotransferase 6 U/L (0-33); Albumin Level 2.7 g/dL (3.5-5.2); Alkaline Phosphatase 118 IU/L (35-105); Anion Gap 14.3 (5-19); Aspartate Amino Transferase 10 U/L (0-32); Blood Urea Nitrogen 9 mg/dL (8-23); Carbon Dioxide 21 mmol/L (22-29); Chloride 104 mmol/L (98-107); Globulin 3.1 g/dL (1.3-4.6); Glucose 110 mg/dL (65-115); Osmolality Calculated 281 mOsm/kg (285-295); Potassium 3.3 mmol/L (3.5-5.1); Sodium 136 mmol/L (136-145); Total Bilirubin 0.4 mg/dL (0.15-1.2); Total Protein 5.8 g/dL (6.6-8.7)
[2021-06-01] MEDS: TRAMadol 50 mg Tablet PO ×3 (07:49→20:07)
[2021-06-01] MEDS: lactulose oral liq 20 gm/30 mL UDC 10 GM PO ×2 (07:49→20:08)
[2021-06-01] MEDS: memantine 5 mg tablet 10 MG PO ×2 (07:49→20:07)
[2021-06-01] MEDS: lisinopril 20 mg Tablet PO (07:49)
[2021-06-01] MEDS: azithromycin 250 mg Tablet 500 MG PO (08:01)
[2021-06-01] MEDS: amlodipine 5 mg Tablet PO (08:01)
[2021-06-01] MEDS: atorvastatin 40 mg Tablet 20 MG PO (18:55)
[2021-06-01] MEDS: cefTRIAXone 1,000 MG in sodium chloride 0.9% (plus) 50 ML 100 MG IV (18:55)
[2021-06-01] MEDS: donepezil 5 MG Tablet 10 MG PO (20:07)
[2021-06-01] MEDS: enoxaparin 40 mg/0.4 mL Syringe SUBCUT (20:08)
--- NOTE | 2021-06-01 20:56 | P.PN_ITS ---
Subjective Subjective: Interval history: She states she is doing about the same. Coughing. Denies chest pain. Vitals/I&O/Wt Last Vital Signs Temp 98.3 F 06/01/21 16:00 Pulse 88 06/01/21 20:08 Resp 18 06/01/21 20:08 BP 129/66 06/01/21 16:00 Pulse Ox 92 06/01/21 20:08 06/01/21 06/01/21 06/01/21 06:59 14:59 22:59 Intake Total 360 / 360 50 / 410 Balance 360 / 360 50 / 410 Physical Exam Const: COMMON NORMALS: no acute distress and patient oriented x3 HENMT: COMMON NORMALS: oropharynx normal Neck/C-Spine: COMMON NORMALS: no JVD Resp: COMMON NORMALS: normal respiratory effort AUSCULTATION: rhonchi Cardio: COMMON NORMALS: no JVD, regular rhythm, S1 normal heart sound present, S2 normal heart sound present and No murmurs present (Cardio) RHYTHM: regular rhythm HEART SOUNDS: S1 normal heart sound present and S2 normal heart sound present GI: COMMON NORMALS: Normal to inspection, nondistended, normoactive bowel sounds present, Soft to palpation and non-tender PALPATION: Yes Soft to palpation Extremity: COMMON NORMALS: no joint enlargement and no pedal edema Neuro: COMMON NORMALS: patient oriented x3 and moves all extremities Skin: COMMON NORMALS: no rashes or lesions noted GENERAL SKIN EXAM: no rashes or lesions noted Data : 06/01/21 05:26 06/01/21 05:26 A&P Assessment and plan (1) Community acquired pneumonia: HIB pneumonia. Worse leukocytosis. Continue Ceftriaxone 1g iv q24h + azithromycin 500mg supplemental 02 to keep sat >92% albuterol inhalation prn COVID PCR negative at facility from 05/25 Status: Acute Qualifiers: Laterality: unspecified laterality Qualified Code(s): J18.9 - Pneumonia, unspecified organism (2) UTI (urinary tract infection): +UA, urine cx with E.coli , susceptible to ceftriaxone. Continue. cr normal no obstruction Status: Acute Qualifiers: Hematuria presence: without hematuria Urinary tract infection type: acute cystitis Qualified Code(s): N30.00 - Acute cystitis without hematuria (3) Constipation: with colonic distension Now having bowel movements. Abdomen soft. Nontender. Status: Acute Qualifiers: Constipation type: unspecified constipation type Qualified Code(s): K59.00 - Constipation, unspecified (4) Alzheimer disease: worsened mentation than at baseline, likely secondary to metabolic encephalopathy from infection on top of chronic dementia. Mental status is now back at baseline. Status: Acute Additional A&P Information Hypertension blood pressure is now better controlled with addition of amlodipine. [facility] to [facility]. Attestations Medical Necessity Statement*: Continue IV antibiotic for treatment of Haemophilus influenza pneumonia, complicated UTI with now improving encephalopathy superimposed on Alzheimer's disease. Coding Level of Care Code Acute Child Development Director for [facility] Fwd Diagnoses Community acquired pneumonia J18.9 Laterality: unspecified laterality UTI (urinary tract infection) N30.00 Hematuria presence: without hematuria Urinary tract infection type: acute cystitis Constipation K59.00 Constipation type: unspecified constipation type Alzheimer disease G30.9; F02.80
[2021-06-02] VITALS: BP 121/76; PULSE 80; RESP 16; TEMP 36.7; O2SAT 91
[2021-06-02 03:36] VITALS: BP 116/72; PULSE 83; RESP 16; TEMP 36.8; O2SAT 92
[2021-06-02 06:14] LABS: Basophils # 0.1 10^3/uL (0.0-0.1); Basophils % 0.4 %; Eosinophils % 0.1 %; Hematocrit 33.3 % (37.0-47.0); Hemoglobin 10.5 g/dL (11.5-15.3); Lymphocytes % 7.3 %; Mean Corpuscular HGB Conc 31.5 g/dL (30.0-36.0); Mean Corpuscular Hemoglobin 29.3 pg (28.0-34.0); Mean Platelet Volume 10.8 fL (7.4-10.4); Monocytes % 21.5 %; Neutrophils # 9.55 10^3/uL (1.8-7.7); Neutrophils % 67.3 %; Nucleated Red Blood Cells % 0 %; Platelet Count 337 10^3/cmm (130-400); Red Blood Count 3.58 10^6/uL (4.1-5.3); Red Cell Distribution Width 12.7 % (12.1-15.1); White Blood Count 14.2 10^3/uL (4.0-10.0)
[2021-06-02 06:31] LABS: Alanine Aminotransferase 7 U/L (0-33); Albumin Level 2.5 g/dL (3.5-5.2); Alkaline Phosphatase 116 IU/L (35-105); Anion Gap 13.6 (5-19); Aspartate Amino Transferase 14 U/L (0-32); Blood Urea Nitrogen 11 mg/dL (8-23); Calcium 7.9 mg/dL (8.5-10.5); Carbon Dioxide 23 mmol/L (22-29); Chloride 103 mmol/L (98-107); Globulin 3.2 g/dL (1.3-4.6); Glucose 91 mg/dL (65-115); Osmolality Calculated 281 mOsm/kg (285-295); Potassium 3.6 mmol/L (3.5-5.1); Sodium 136 mmol/L (136-145); Total Bilirubin 0.3 mg/dL (0.15-1.2); Total Protein 5.7 g/dL (6.6-8.7)
[2021-06-02 08:00] VITALS: BP 129/77; PULSE 78; RESP 18; TEMP 37.3; O2SAT 91
[2021-06-02] MEDS: TRAMadol 50 mg Tablet PO ×2 (08:12→14:16)
[2021-06-02] MEDS: amlodipine 5 mg Tablet PO (08:12)
[2021-06-02] MEDS: memantine 5 mg tablet 10 MG PO (08:12)
[2021-06-02] MEDS: lactulose oral liq 20 gm/30 mL UDC 10 GM PO (08:13)
[2021-06-02] MEDS: lisinopril 20 mg Tablet PO (08:13)
--- NOTE | 2021-06-02 08:23 | PC.SLP ---
Patient is unresponsive and unable to fully participate in further assessment for appropriate diet level. MBS has been suggested, however, the patient is unable to participate.
[2021-06-02 11:53] VITALS: BP 124/75; PULSE 80; RESP 18; TEMP 37.6; O2SAT 91
--- NOTE | 2021-06-02 14:24 | PC.SOCIAL ---
IMM UPDATE IMM updated with patient. Left copy at bedside. Verbalized understanding. Initialed, dated, timed and placed in chart.
--- NOTE | 2021-06-02 15:07 | P.DS_ITS ---
Discharge Providers Date of Admission: 05/28/21 16:47 Date of Discharge: June 02, 2021 Attending Provider at Admission: Kait Olmstead MD Attending Provider at Discharge: Deon Gray Diagnoses at Discharge Discharge Diagnosis (1) Community acquired pneumonia: Status: Acute Qualifiers: Laterality: unspecified laterality Qualified Code(s): J18.9 - Pneumonia, unspecified organism (2) UTI (urinary tract infection): Status: Acute Qualifiers: Hematuria presence: without hematuria Urinary tract infection type: acute cystitis Qualified Code(s): N30.00 - Acute cystitis without hematuria (3) Constipation: Status: Acute Qualifiers: Constipation type: unspecified constipation type Qualified Code(s): K59.00 - Constipation, unspecified (4) Alzheimer disease: Status: Acute Reason for Visit Reason for Visit: abdominal pain/ confusion Hospital Course Hospital Course 80-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 Also noted increased confusion compared to baseline. She was admitted, treated for community acquired pneumonia, UTI. Was treated with ceftriaxone, azithromycin. Oxygen supplementation, albuterol inhalers. Initially also with noted constipation which had improved with bowel regimen. Acute encephalopathy present on admission, superimposed on chronic dementia improved with treatment. Oxygenation gradually improved, and she weaned off oxygen support. Cultures eventually with heavy growth of haemophilus influenza in sputum culture, as well as more than 100,000 CFU E. coli resistant to ampicillin, ciprofloxacin, levofloxacin. Leukocytosis with transient increase up as high as 17.4 on 06/01, with decreased today to 14.2. She is otherwise doing well. Completed 5 days of ceftriaxone for urinary tract infection. Will complete additional 2 days of treatment for pneumonia with cefdinir. She remains awake, alert, pleasant, conversant, although with baseline dementia. Denies any complaints or any discomfort. Cough is gradually improving. With noted hypertension, amlodipine is added to help with blood pressure control in addition to lisinopril. Physical Exam Const: COMMON NORMALS: no acute distress and patient oriented x3 HENMT: COMMON NORMALS: oropharynx normal Neck/C-Spine: COMMON NORMALS: no JVD Resp: COMMON NORMALS: normal respiratory effort AUSCULTATION: rhonchi Cardio: COMMON NORMALS: no JVD, regular rhythm, S1 normal heart sound present, S2 normal heart sound present and No murmurs present (Cardio) RHYTHM: regular rhythm HEART SOUNDS: S1 normal heart sound present and S2 normal heart sound present GI: COMMON NORMALS: Normal to inspection, nondistended, normoactive bowel sounds present, Soft to palpation and non-tender PALPATION: Yes Soft to palpation Extremity: COMMON NORMALS: no joint enlargement and no pedal edema Neuro: COMMON NORMALS: patient oriented x3 and moves all extremities Skin: COMMON NORMALS: no rashes or lesions noted GENERAL SKIN EXAM: no rashes or lesions noted Discharge Data Data Completed and Pending: Completed Studies During Hospitalization Category Date Time Status CT abdomen pelvis w con* [id number] Stat Cat Scan 05/28/21 14:03 Completed XR chest 1V colin ble [id number] Urgent Exams 05/28/21 12:51 Completed Pending at discharge Category Date Time Status Blood Culture AM LABS Lab 05/30/21 05:49 Results Complete Blood Co unt w/Auto AM LABS Lab 06/03/21 04:00 Ordered Complete Blood Co unt w/Auto AM LABS Lab 06/04/21 04:00 Ordered Comprehensive Met abolic Panel AM LA BS Lab 06/03/21 04:00 Ordered Comprehensive Met abolic Panel AM LA BS Lab 06/04/21 04:00 Ordered Labs from last 24 hours 06/02/21 06/02/21 05:23 05:23 WBC 14.2 H RBC 3.58 L Hgb 10.5 L Hct 33.3 L MCV 93.0 MCH 29.3 MCHC 31.5 RDW 12.7 Plt Count 337 MPV 10.8 H Neut % (Auto) 67.3 Lymph % (Auto) 7.3 [place] % (Auto) 21.5 Eos % (Auto) 0.1 Baso % (Auto) 0.4 Neut # (Auto) 9.55 H Lymph # (Auto) 1.0 [place] # (Auto) 3.0 H Eos # (Auto) 0.0 Baso # (Auto) 0.1 Nucleated RBC % (a uto) 0 Nucleated RBCs # 0.0 Sodium 136 Potassium 3.6 Chloride 103 Carbon Dioxide 23 Anion Gap 13.6 BUN 11 Creatinine 0.8 GFR Calculation Not Reportable Glucose 91 Calculated Osmolal ity 281 L Calcium 7.9 L Total Bilirubin 0.3 AST 14 ALT 7 Alkaline Phosphata se 116 H Total Protein 5.7 L Albumin 2.5 L Globulin 3.2 Vitals: Last Vital Signs Temp 99.6 F 06/02/21 11:53 Pulse 80 06/02/21 11:53 Resp 18 06/02/21 11:53 BP 124/75 06/02/21 11:53 Pulse Ox 91 06/02/21 11:53 Discharge Plan Discharge Patient Disposition: Xfer SNF Condition: Stable Prescriptions: New cefdinir 300 mg capsule 300 mg PO BID Qty: 4 RF: 0 amlodipine 5 mg Tablet 5 mg PO DAILY Qty: 30 RF: 0 Continued albuterol sulfate 2.5 mg /3 mL (0.083 %) Solution For Nebulization 2.5 mg INHALATION Q4H PRN (Reason: Cough) RF: 0 donepezil 10 mg Tablet 10 mg PO DAILY@1999 RF: 0 lisinopril 20 mg Tablet 20 mg PO DAILY@0800 RF: 0 simvastatin 10 mg Tablet 10 mg PO DAILY@1700 RF: 0 tramadol 50 mg Tablet 50 mg PO TID@08,14,20 RF: 0 tramadol 50 mg Tablet 50 mg PO Q8H PRN (Reason: Pain) RF: 0 Mapap Arthritis Pain 650 mg Tablet Extended Release 650 mg PO Q6H PRN (Reason: Pain) RF: 0 bisacodyl 5 mg Tablet,Delayed Release (Dr/Ec) 5 mg PO DAILY MDD 2 TIMES PRN (Reason: Constipation) RF: 0 loratadine 10 mg Tablet 10 mg PO DAILY@0800 RF: 0 TwoCal HN Liquid 1 ea PO BID@799,1999 RF: 0 memantine 10 mg Tablet 10 mg PO BID@799,1999 RF: 0 Natural Tears (PF) 0.1-0.3 % Dropperette 1 drp ophthalmic (eye) PRN RF: 0 Discharge Orders: Discharge Order (Routine); Ordered 06/02/21 Ordered By: Deon Gray Referrals: SNF, PCP [Other] - 4-7 days Discharge Diet: Usual diet Discharge Activity: Increase activity as tolerated Patient Instructions: Urinary Tract Infection in Women (GEN), Bacterial Pneumonia (GEN), Opioid Safety Activity Restrictions/Additional Instructions: Please complete additional 2 days antibiotic course with cefdinir for Haemophilus influenza pneumonia. Completed 5 days of antibiotics for urinary tract infection with E. coli. Continue to monitor blood pressures for hypertension. Amlodipine is added for better blood pressure control. Avoid constipation. Discharge Attestations Time Spent in Discharge Care*: greater than 30 min Quality Metrics Clinical Quality Measures During this hospital stay, did patient experience: None Coding Level of Care Code Acute Chg FW DC note Exam Comprehensive Diagnoses Community acquired pneumonia J18.9 Laterality: unspecified laterality UTI (urinary tract infection) N30.00 Hematuria presence: without hematuria Urinary tract infection type: acute cystitis Constipation K59.00 Constipation type: unspecified constipation type Alzheimer disease G30.9; F02.80
[2021-06-02] MEDS: cefTRIAXone 1,000 MG in sodium chloride 0.9% (plus) 50 ML 100 MG IV (15:17)
--- NOTE | 2021-06-02 15:20 | PC.NURSE ---
in morning H2H rounding the Dr directed this nurse to give scheduled IV abx early at 1500 to expedite the d/c process so that the patient could go back [facility] and not unnecessarily extend her hospital stay any longer since the scheduled time was for 1814
[2021-06-02 16:00] VITALS: BP 131/79; PULSE 80; RESP 18; TEMP 37.5; O2SAT 93
[2021-06-02] MEDS: atorvastatin 40 mg Tablet 20 MG PO (18:17)
--- NOTE | 2021-06-02 19:19 | PC.NURSE ---
Transportation came and got patient at 1910. This nurse and Alice Beck RN transferred patient into wheelchair.
[2021-06-02 19:22] VITALS: BP 131/79; PULSE 80; RESP 18; TEMP 37.5; O2SAT 93
== END 2021-06-02 19:15 | disposition skilled nursing facility (03) | DRG 193 ==
LOC: ER 17:43 → MEDSURG 17:52
PROVIDERS: Admitting Provider Student in an Organized Health Care Education/Training Program; Emergency Provider Family Medicine; Visit Provider Internal Medicine
DX: J18.9 Pneumonia, unspecified organism (principal); G93.41 Metabolic encephalopathy; N30.00 Acute cystitis without hematuria; J90 Pleural effusion, not elsewhere classified; Z16.11 Resistance to penicillins; Z16.39 Resistance to other specified antimicrobial drug; G30.9 Alzheimer's disease, unspecified; F02.80 Dementia in other diseases classified elsewhere, unspecified severity, without behavioral disturbance, psychotic disturbance, mood disturbance, and anxiety; K59.00 Constipation, unspecified; B96.3 Hemophilus influenzae [H. influenzae] as the cause of diseases classified elsewhere; B96.20 Unspecified Escherichia coli [E. coli] as the cause of diseases classified elsewhere; I10 Essential (primary) hypertension
CPT/HCPCS: 36415; 36600; 71045; 74177; 80053; 81001; 82805; 83605; 83690; 84484; 85025; 87040; 87070; 87077; 87086; 87186; 87635; 92526; 92610; 93005; 96365; 96367; 96372; 99285; J0456; J0696; J1650; J7030; J7050; Q0144; Q9967

== ENCOUNTER 2021-09-28 14:40 | Emergency (ER) | payer MEDICARE, SELFPAY ==
[2021-09-28 14:44] VITALS: BP 107/73; PULSE 68; RESP 14; TEMP 36.4; O2SAT 95; BMI 30.7
--- NOTE | 2021-09-28 15:25 | XRR_ITS ---
PROCEDURE INFORMATION: Exam: XR Chest Exam date and time: 09/28/2021 3:25 PM Age: 81 years old Clinical indication: Cough and dyspnea. TECHNIQUE: Imaging protocol: XR of the chest. Views: 1 view. COMPARISON: CR XR chest 1V portable [id number] 05/28/2021 1:31 PM FINDINGS: Lungs: There is prominent bulging of the right hilum that could reflect an ascending thoracic aortic aneurysm. The aorta is tortuous. There are foci of subsegmental atelectasis or scarring bilaterally. Nodule in the right upper lobe that appears slightly more prominent than on the prior study measuring 6 mm. Pleural spaces: No pleural effusion.. No pneumothorax. Heart/Mediastinum: The cardiac silhouette is approximately unchanged. No gross evidence of pneumomediastinum. Bones/joints: No gross fracture. XR/XR chest 1V portable [id number] IMPRESSION: 1. There is prominent bulging of the right hilum that could reflect an ascending thoracic aortic aneurysm. The aorta is tortuous. 2. Nodule in the right upper lobe that appears slightly more prominent than on the prior study measuring 6 mm. 3. Recommend CTA of the chest to further assess. Radiation Dose CTDIVOL = (mGy): DLP = (mGy-cm)
--- NOTE | 2021-09-28 15:25 | ECG_ITS ---
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
--- NOTE | 2021-09-28 15:29 | ED_ITS ---
HPI - Syncope General: Chief Complaint: Syncope Stated Complaint: SYNCOPAL EPISODE Time Seen by Provider: 09/28/21 14:44 History of Present Illness: HPI narrative: 81-year-old female presents to the emergency room. She was sitting down at lunch and had a syncopal episode. Patient has a longstanding history of dementia. Patient initially was mildly diaphoretic and hypotensive on arrival by EMS. On arrival here she is doing much better. Blood pressure 107 systolic. She is awake and responsive. None of her answers really make any sense however. Because of her dementia she is not able to give a lot of assistance with history. Reviewing the chart and talking to EMS and the retirement this happened several hours prior to EMS being called. She denies any chest pain at this time. Initial EKG is unremarkable. MD complaint: collapsed Onset (ago): hour(s) (2) Witnessed: Yes - by Bystander Context: at rest Associated symptoms: Deny abdominal pain, chest pain, fever(s), headache(s), lightheadedness, nausea, short of breath, vertigo or weakness History: other (dementia) Treatments prior to arrival: none Review of Systems Const: Denies: fever(s) ENMT: Denies: throat pain, ear or mastoid pain, nasal discharge or nasal congestion Card: Denies: chest pain or lightheadedness Resp: Denies: dyspnea, productive cough or non-productive cough GI: Denies: abdominal pain or nausea : Denies: flank pain, difficulty voiding, dysuria, urinary frequency or urinary urgency Skin/Breast: Denies: rash or pruritus Neuro: Denies: headache(s) or vertigo [facility] ED PFSH: Medical History Alzheimer disease Community acquired pneumonia Constipation UTI (urinary tract infection) Physical Exam Const: COMMON NORMALS: no acute distress HENMT: COMMON NORMALS: normocephalic and atraumatic HEAD & SCALP: normocephalic and atraumatic Neck/C-Spine: COMMON NORMALS: no JVD Resp: COMMON NORMALS: normal respiratory effort, No retractions and No use of accessory muscles AUSCULTATION: rales on the right at the base and wheezes Cardio: COMMON NORMALS: no JVD, regular rate, regular rhythm and No murmurs present (Cardio) RATE: regular rate RHYTHM: regular rhythm GI: COMMON NORMALS: Soft to palpation and No hepatosplenomegaly present AUSCULTATION: Yes normoactive bowel sounds PALPATION: Yes Soft to palpation, No Tenderness to palpation present (GI), No Guarding due to palpation present (GI) and Yes No hepatosplenomegaly present Extremity: COMMON NORMALS: normal to inspection, capillary refill normal, no clubbing, cyanosis or edema, no calf tenderness and no pedal edema Skin: COMMON NORMALS: no rashes or lesions noted GENERAL SKIN EXAM: no rashes or lesions noted Course Vital Signs: Vital signs: Vital Signs Temperature 97.6 F 09/28/21 14:44 Pulse Rate 62 09/29/21 10:00 Respiratory Rate 16 09/29/21 09:09 Blood Pressure 136/61 09/29/21 10:00 Pulse Oximetry 92 09/29/21 10:00 MDM - Syncope MDM Narrative: Medical decision making narrative: She is awake alert with no evidence of significant abnormality. The retirement she appears to be at her normal baseline. We will go ahead and discharge her home EKG and labs reviewed as on the chart. 09/29/2021 6:58 AM Patient still present in the ER awaiting transportation chart reviewed with get a troponin and a BMP and give some fluids since she has been here all night. Lab Data: Labs: Lab Results 09/28/21 09/28/21 09/28/21 15:30 15:30 15:30 WBC 10.1 10^3/uL H 10 ^3/uL (4.0-10.0) RBC 4.35 10^6/uL 10^6 /uL (4.1-5.3) Hgb 12.5 g/dL g/dL (11.5-15.3) Hct 40.8 % % (37.0-47.0) MCV 93.8 fl fl (81-99) MCH 28.7 pg pg (28.0-34.0) MCHC 30.6 g/dL g/dL (30.0-36.0) RDW 13.7 % % (12.1-15.1) Plt Count 267 10^3/cmm 10^3 /cmm (130-400) MPV 10.5 fL H fL (7.4-10.4) Neut % (Auto) 81.6 % % Lymph % (Auto) 7.3 % % Coal % (Auto) 7.2 % % Eos % (Auto) 0.9 % % Baso % (Auto) 0.4 % % Neut # (Auto) 8.24 10^3/uL H 10 ^3/uL (1.8-7.7) Lymph # (Auto) 0.7 10^3/uL L 10^ 3/uL (0.8-4.8) Coal # (Auto) 0.7 10^3/uL 10^3/ uL (0.2-0.9) Eos # (Auto) 0.1 10^3/uL 10^3/ uL (0.0-0.8) Baso # (Auto) 0.0 10^3/uL 10^3/ uL (0.0-0.1) Nucleated RBC % (a uto) 0 % % Nucleated RBCs # 0.0 /100WBC /100W BC Sodium 137 mmol/L mmol/L (136-145) Potassium 5.0 mmol/L mmol/L (3.5-5.1) Chloride 103 mmol/L mmol/L (98-107) Carbon Dioxide 25 mmol/L mmol/L (22-29) Anion Gap 14.0 (5-19) BUN 29 mg/dL H mg/dL (8-23) Creatinine 1.1 mg/dL H mg/dL (0.5-0.9) GFR Calculation Not Reportable Glucose 147 mg/dL H mg/dL (65-115) Calculated Osmolal ity 293 mOsm/kg mOsm/ kg (285-295) Lactic Acid 1.6 mmol/L mmol/L (0.5-2.2) Calcium 9.2 mg/dL mg/dL (8.5-10.5) Total Bilirubin 0.2 mg/dL mg/dL (0.15-1.2) AST 17 U/L U/L (0-32) ALT 10 U/L U/L (0-33) Alkaline Phosphata se 133 IU/L H IU/L (35-105) Creatine Kinase 52 U/L U/L (26-192) Troponin T Gen 5 n g/L Total Protein 6.5 g/dL L g/dL (6.6-8.7) Albumin 3.7 g/dL g/dL (3.5-5.2) Globulin 2.8 g/dL g/dL (1.3-4.6) Urine Color Urine Appearance Urine pH Ur Specific Gravit y Urine Protein Urine Glucose (UA) Urine Ketones Urine Blood Urine Nitrate Urine Bilirubin Urine Urobilinogen Ur Leukocyte Staci ase 09/28/21 09/29/21 09/29/21 19:50 07:11 07:11 WBC RBC Hgb Hct MCV MCH MCHC RDW Plt Count MPV Neut % (Auto) Lymph % (Auto) Coal % (Auto) Eos % (Auto) Baso % (Auto) Neut # (Auto) Lymph # (Auto) Coal # (Auto) Eos # (Auto) Baso # (Auto) Nucleated RBC % (a uto) Nucleated RBCs # Sodium 136 mmol/L mmol/L (136-145) Potassium 4.6 mmol/L mmol/L (3.5-5.1) Chloride 105 mmol/L mmol/L (98-107) Carbon Dioxide 23 mmol/L mmol/L (22-29) Anion Gap 12.6 (5-19) BUN 26 mg/dL H mg/dL (8-23) Creatinine 0.9 mg/dL mg/dL (0.5-0.9) GFR Calculation Not Reportable Glucose 80 mg/dL mg/dL (65-115) Calculated Osmolal ity 286 mOsm/kg mOsm/ kg (285-295) Lactic Acid Calcium 8.8 mg/dL mg/dL (8.5-10.5) Total Bilirubin AST ALT Alkaline Phosphata se Creatine Kinase Troponin T Gen 5 n g/L 27 ng/L H ng/L (0-10) Total Protein Albumin Globulin Urine Color Yellow (Yellow) Urine Appearance Clear (CLEAR) Urine pH 5 (5-7) Ur Specific Gravit y 1.015 (1.005-1.030) Urine Protein Neg (Negative) Urine Glucose (UA) Norm (Normal) Urine Ketones Negative (Negative) Urine Blood Neg (Negative) Urine Nitrate Negative (Negative) Urine Bilirubin Neg (Negative) Urine Urobilinogen Norm mg/dL mg/dL (Negative) Ur Leukocyte Staci ase Negative (Negative) Discharge Plan Discharge Patient Disposition: Home Clinical Impression: Syncope, Dementia Condition: Stable Prescriptions: No Action albuterol sulfate 2.5 mg /3 mL (0.083 %) Solution For Nebulization 2.5 mg INHALATION Q4H PRN (Reason: Cough) RF: 0 donepezil 10 mg Tablet 10 mg PO DAILY@2000 RF: 0 lisinopril 20 mg Tablet 20 mg PO DAILY@0800 RF: 0 simvastatin 10 mg Tablet 10 mg PO DAILY@1700 RF: 0 tramadol 50 mg Tablet 50 mg PO TID@08,14,20 RF: 0 tramadol 50 mg Tablet 50 mg PO Q8H PRN (Reason: Pain) RF: 0 Mapap Arthritis Pain 650 mg Tablet Extended Release 650 mg PO Q6H PRN (Reason: Pain) RF: 0 bisacodyl 5 mg Tablet,Delayed Release (Dr/Ec) 5 mg PO DAILY MDD 2 TIMES PRN (Reason: Constipation) RF: 0 loratadine 10 mg Tablet 10 mg PO DAILY@0800 RF: 0 food supplemt, lactose-reduced Liquid 1 ea PO BID@0800,1999 RF: 0 memantine 10 mg Tablet 10 mg PO BID@0800,1999 RF: 0 Natural Tears (PF) 0.1-0.3 % Dropperette 1 drp ophthalmic (eye) PRN RF: 0 cefdinir 300 mg capsule 300 mg PO BID Qty: 4 RF: 0 amlodipine 5 mg Tablet 5 mg PO DAILY Qty: 30 RF: 0 Discharge Orders: Discharge ED (Routine); Ordered 09/28/21 Ordered By: Enrico Adorno Discharge Diet: Usual diet Discharge Activity: Resume usual activity Patient Instructions: Opioid Safety Coding Level of Care Code ED Disease And Insect Control Boss for Carlos A Fwd Exam Comprehensive
[2021-09-28 15:39] LABS: Basophils % 0.4 %; Eosinophils # 0.1 10^3/uL (0.0-0.8); Eosinophils % 0.9 %; Hematocrit 40.8 % (37.0-47.0); Hemoglobin 12.5 g/dL (11.5-15.3); Lymphocytes # 0.7 10^3/uL (0.8-4.8); Lymphocytes % 7.3 %; Mean Corpuscular HGB Conc 30.6 g/dL (30.0-36.0); Mean Corpuscular Hemoglobin 28.7 pg (28.0-34.0); Mean Corpuscular Volume 93.8 fl (81-99); Mean Platelet Volume 10.5 fL (7.4-10.4); Monocytes # 0.7 10^3/uL (0.2-0.9); Monocytes % 7.2 %; Neutrophils # 8.24 10^3/uL (1.8-7.7); Neutrophils % 81.6 %; Nucleated Red Blood Cells % 0 %; Platelet Count 267 10^3/cmm (130-400); Red Blood Count 4.35 10^6/uL (4.1-5.3); Red Cell Distribution Width 13.7 % (12.1-15.1); White Blood Count 10.1 10^3/uL (4.0-10.0)
[2021-09-28 16:04] LABS: Alanine Aminotransferase 10 U/L (0-33); Albumin Level 3.7 g/dL (3.5-5.2); Alkaline Phosphatase 133 IU/L (35-105); Aspartate Amino Transferase 17 U/L (0-32); Blood Urea Nitrogen 29 mg/dL (8-23); Calcium 9.2 mg/dL (8.5-10.5); Carbon Dioxide 25 mmol/L (22-29); Chloride 103 mmol/L (98-107); Creatine Phosphokinase 52 U/L (26-192); Globulin 2.8 g/dL (1.3-4.6); Glucose 147 mg/dL (65-115); Osmolality Calculated 293 mOsm/kg (285-295); Sodium 137 mmol/L (136-145); Total Bilirubin 0.2 mg/dL (0.15-1.2); Total Protein 6.5 g/dL (6.6-8.7)
[2021-09-28 16:05] LABS: Lactic Sepsis W/Reflex 1.6 mmol/L (0.5-2.2)
--- NOTE | 2021-09-28 16:30 | CTR_ITS ---
PROCEDURE INFORMATION: Exam: CTA Chest With Contrast Exam date and time: 09/28/2021 4:30 PM Age: 81 years old Clinical indication: Abnormal findings; Abnormal radiologic exam of lung or chest; Abnormal diagnostic imaging exam; Abnormality: Abnormal cxr; Patient HX: PT has dementia. Poor historian TECHNIQUE: Imaging protocol: Computed tomographic angiography of the chest with contrast. 3D rendering (Not supervised by radiologist): MIP and/or 3D reconstructed images were created by the technologist. Radiation optimization: All CT scans at this facility use at least one of these dose optimization techniques: automated exposure control; mA and/or kV adjustment per patient size (includes targeted exams where dose is matched to clinical indication); or iterative reconstruction. Contrast material: VISI 320; Contrast volume: 95 ml; Contrast route: INTRAVENOUS (IV); COMPARISON: CT abdomen pelvis w con* [id number] 05/28/2021 2:46 PM RADIATION DOSE METRICS: Total DLP (mGy-cm): 1211.38 FINDINGS: Pulmonary arteries: The pulmonary arteries are not well assessed secondary to poor bolus timing. No main or central pulmonary embolus is seen. 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 No wenceslao aneurysm is seen. No rupture or dissection. Lungs: No pulmonary consolidation.. No pulmonary mass.. There is mild peribronchial wall thickening. Calcified granuloma in the right upper lobe. Pleural spaces: No pleural effusion.. No pneumothorax. Heart: Coronary arterial calcifications are noted. No pericardial effusion. Lymph nodes: No significant mediastinal lymphadenopathy. Diaphragm: Small hiatal hernia. Bones/joints: No acute fracture is seen. Bilateral glenohumeral joint effusions. Probable fluid in the left subacromial/subdeltoid bursa. IMPRESSION: 1. 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 No wenceslao aneurysm is seen. No rupture or dissection. 2. There is mild peribronchial wall thickening; query viral infection/bronchitis, chronic bronchitis and/or asthma. 3. Bilateral glenohumeral joint effusions. Probable fluid in the left subacromial/subdeltoid bursa. 4. Coronary artery disease. PROCEDURE INFORMATION: Exam: CT Angiography Abdomen With Contrast Exam date and time: 09/28/2021 4:30 PM Age: 81 years old Clinical indication: Abnormal findings; Abnormal radiologic exam of lung or chest; Abnormal diagnostic imaging exam; Abnormality: Abnormal cxr; Patient HX: PT has dementia. Poor historian TECHNIQUE: Imaging protocol: Computed tomographic angiography images of the abdomen with intravenous contrast material. 3D rendering (Not supervised by radiologist): MIP and/or 3D reconstructed images were created by the technologist. Radiation optimization: All CT scans at this facility use at least one of these dose optimization techniques: automated exposure control; mA and/or kV adjustment per patient size (includes targeted exams where dose is matched to clinical indication); or iterative reconstruction. Contrast material: VISI 320; Contrast volume: 95 ml; Contrast route: INTRAVENOUS (IV); COMPARISON: CT abdomen pelvis w con* [id number] 05/28/2021 2:46 PM RADIATION DOSE METRICS: Total DLP (mGy-cm): 1211.38 FINDINGS: Abdominal arterial system: No abdominal aortic aneurysm is seen. There are small foci of fungating atheromatous plaque in the infrarenal abdominal aorta (series 602, image 38). No propagating dissection is seen. No significant aortic narrowing is identified. There is approximately 30% narrowing of the proximal left renal artery. The right renal artery is adequately patent. 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 There is approximately 65% narrowing of the proximal superior mesenteric artery. The inferior mesenteric artery is patent. The visualized common iliac arteries are patent. Liver: A simple hepatic cyst measures 1.4 cm. Gallbladder and bile ducts: The gallbladder is unremarkable. Pancreas: Hypodense lesion in the pancreatic neck measuring 1.2 x 1.1 cm. Spleen: The spleen is unremarkable. Adrenals: The adrenal glands are unremarkable. Kidneys and ureters: The kidneys are unremarkable. Stomach and bowel: The visualized colon is unremarkable. Appendix: The appendix is not visualized. Lymph nodes: No retroperitoneal lymphadenopathy. Intraperitoneal space: No free intraperitoneal air is seen. Bones/joints: No acute fracture is seen. Soft tissues: Small fat containing umbilical hernia. Other findings: No evidence of small-bowel obstruction. CT/CT angio chest abdomen IMPRESSION: 1. There are foci of fungating atheromatous plaque in the infrarenal abdominal aorta. No propagating dissection is seen. No significant aortic narrowing is identified. 2. 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 3. There is approximately 65% narrowing of the proximal superior mesenteric artery. 4. There is approximately 30% narrowing of the proximal left renal artery. 5. Small hypodense lesion in the pancreatic neck. Recommend nonemergent MR abdomen pancreatic protocol with and without contrast to better characterize. Radiation Dose CTDIVOL = (mGy): DLP = 1211.38~1211.38 (mGy-cm)
[2021-09-28] MEDS: iodixanol 320 mg/mL 100mL Btl IV (16:56)
[2021-09-28 19:29] VITALS: BP 110/79; RESP 18; O2SAT 94
[2021-09-28 19:30] VITALS: BP 110/79; PULSE 68; RESP 18; O2SAT 96
[2021-09-28 20:26] LABS: Add Urine Microscopic? NO; Charge for UA Resulting for Rev
[2021-09-28 20:29] LABS: Bilirubin Urine Neg (Negative); Blood Urine Neg (Negative); Glucose Urine UA Norm (Normal); Ketones Urine Negative (Negative); Leukocyte Esterase Urine Negative (Negative); Nitrate Urine Negative (Negative); Protein Urine Neg (Negative); Specific Gravity, Urine 1.015 (1.005-1.030); Urine Appearance Clear (CLEAR); Urine Color Yellow (Yellow); Urobilinogen Urine Norm (Negative); pH Urine 5 (5-7)
--- NOTE | 2021-09-28 23:16 | PC.NURSE ---
pt report called to senior living at this time.
[2021-09-29 03:00] VITALS: BP 138/78; PULSE 78; RESP 14; O2SAT 96
[2021-09-29 05:48] VITALS: BP 138/74; PULSE 76; RESP 18; O2SAT 96
[2021-09-29] MEDS: sodium chloride 0.9% 500 ML 999 ML IV (07:20)
[2021-09-29 07:47] LABS: Anion Gap 12.6 (5-19); Blood Urea Nitrogen 26 mg/dL (8-23); Calcium 8.8 mg/dL (8.5-10.5); Carbon Dioxide 23 mmol/L (22-29); Chloride 105 mmol/L (98-107); Glucose 80 mg/dL (65-115); Osmolality Calculated 286 mOsm/kg (285-295); Potassium 4.6 mmol/L (3.5-5.1); Sodium 136 mmol/L (136-145)
[2021-09-29 07:49] LABS: Troponin T (5th) Once 27 ng/L (0-10)
--- NOTE | 2021-09-29 08:36 | PC.NURSE ---
while at doorway pt is resting quietly with eyes closed supine in bed. pt has good chest rise and fall.
[2021-09-29 09:09] VITALS: BP 173/85; PULSE 71; RESP 16; O2SAT 94
[2021-09-29 10:00] VITALS: BP 136/61; PULSE 62; O2SAT 92
--- NOTE | 2021-09-29 11:03 | PC.NURSE ---
PT IS NO LONGER IN ROOM.
== END 2021-09-29 11:09 | disposition home or self-care (01) ==
PROVIDERS: Emergency Provider Family Medicine
DX: R55 Syncope and collapse (principal); G30.9 Alzheimer's disease, unspecified; F02.80 Dementia in other diseases classified elsewhere, unspecified severity, without behavioral disturbance, psychotic disturbance, mood disturbance, and anxiety
CPT/HCPCS: 51702; 71045; 71275; 74175; 80048; 80053; 81003; 82550; 83605; 84484; 85025; 87493; 87506; 93005; 99284; J7040; Q9967

== ENCOUNTER 2024-10-18 08:47 | Outpatient (CLI) | payer MEDICARE, SELFPAY ==
--- NOTE | 2024-10-18 09:00 | CTR_ITS ---
PROCEDURE INFORMATION: Exam: CT Chest Without and With Contrast; Diagnostic Exam date and time: 10/18/2024 9:51 AM Age: 84 years old Clinical indication: Abnormal findings; Abnormal radiologic exam of lung or chest; Additional info: Abnormal finding of lung field TECHNIQUE: Imaging protocol: Diagnostic computed tomography of the chest without and with contrast. Radiation optimization: All CT scans at this facility use at least one of these dose optimization techniques: automated exposure control; mA and/or kV adjustment per patient size (includes targeted exams where dose is matched to clinical indication); or iterative reconstruction. Contrast material: OMNI 350; Contrast volume: 100 ml; Contrast route: INTRAVENOUS (IV); COMPARISON: CT angio chest abd [id number] 09/28/2021 4:45 PM RADIATION DOSE METRICS: Total DLP (mGy-cm): 960.63 FINDINGS: Lungs: Mild atelectasis involves both lung bases but I see no lung mass or infiltrate. Pleural spaces: Unremarkable. No pneumothorax. No pleural effusion. Heart: Unremarkable. No cardiomegaly. No pericardial effusion. Coronary arteries: Coronary artery calcifications are noted. Lymph nodes: Unremarkable. No enlarged lymph nodes. Vasculature: There is a 3.7 cm dilatation involving the ascending thoracic aorta. No evidence of aortic dissection or rupture. Diaphragm: There is mild elevation of the right hemidiaphragm. Bones/joints: Prominent arthritic change involves both shoulder joints with large bilateral joint effusions. Soft tissues: Unremarkable. CT/CT chest wo/w con [id number] IMPRESSION: 1. Stable ectasia of the ascending thoracic aorta 2. Bibasilar atelectasis which is a chronic finding but has worsened somewhat over the past 3 years
[2024-10-18 09:50] LABS: Blood Urea Nitrogen 18 mg/dL (8-23)
[2024-10-18] MEDS: iohexol 350 mg/mL 500 mL Btl (per mL) IV (10:04)
== END 2024-10-18 08:48 | disposition home or self-care (01) ==
PROVIDERS: Radiology Diagnostic Radiology; Visit Provider Nurse Practitioner Family
DX: R06.89 Other abnormalities of breathing (principal); R05.9 Cough, unspecified; I77.810 Thoracic aortic ectasia; J98.11 Atelectasis; I25.84 Coronary atherosclerosis due to calcified coronary lesion; M19.019 Primary osteoarthritis, unspecified shoulder; M25.419 Effusion, unspecified shoulder
CPT/HCPCS: 71270; 82565; 84520